=== PATIENT | male | born 1935 | race Caucasian/White ===

== ENCOUNTER → 2018-12-04 | Outpatient (CLI) | payer MEDICARE ==
--- NOTE | 2018-12-04 08:47 | US ---
EXAMINATION TYPE: US venous doppler duplex LE RT DATE OF EXAM: 12/04/2018 7:52 AM COMPARISON: US CLINICAL HISTORY: R60.9 Edema RLE. SIDE PERFORMED: Right TECHNIQUE: The lower extremity deep venous system is examined utilizing real time linear array sonog camacho with graded compression, doppler sonography and color-flow sonography. VESSELS IMAGED: External Iliac Vein (EIV) Common Femoral Vein Deep Femoral Vein Greater Saphenous Vein * Femoral Vein Popliteal Vein Proximal Calf Veins (* superficial vessels) Grayscale, color doppler, spectral doppler imaging performed of the deep veins of the right lower ext remity. There is normal flow, compressibility, vascular waveforms. Right Leg: Negative for DVT IMPRESSION: No sonographic evidence of deep venous thrombosis within the right lower extremity.
== END | disposition home or self-care (01) ==
LOC: RADUSWWP 07:27
PROVIDERS: ATTEND Internal Medicine Geriatric Medicine
DX: R60.9 Edema, unspecified (principal); I82.401 Acute embolism and thrombosis of unspecified deep veins of right lower extremity

== ENCOUNTER → 2018-12-07 | Outpatient (CLI) | payer MEDICARE ==
--- NOTE | 2018-12-07 13:46 | CT ---
EXAMINATION TYPE: CT pelvis wo con DATE OF EXAM: 12/07/2018 COMPARISON: None HISTORY: Right leg swelling CT DLP: 254.3 mGycm Automated exposure control for dose reduction was used. FINDINGS: Lack of radiographic contrast may limit sensitivity. The prostate is enlarged and shows metallic densities likely due to brachytherapy seeds. Urinary blad roland wall is thickened likely due to chronic outlet obstruction. Atheromatous changes are present with in the vasculature. Degenerative disc changes and facet arthropathy noted at the lower lumbar spine. There is a sclerotic focus present within the left L4 transverse process. Small sclerotic focus withi n the inferior aspect of the superior pubic ramus on the right. Extensive diverticular change associated with the sigmoid colon. IMPRESSION: FINDINGS COULD REPRESENT METASTATIC DISEASE TO THE SKELETON. CONSIDER BONE SCAN FOR BETTER EVALUATION . Noncontrast exam. Diverticulosis. Findings compatible with patient's history of prostate carcinoma, additional findings above.
== END | disposition home or self-care (01) ==
LOC: RADCTMAIN 13:03
PROVIDERS: ATTEND Internal Medicine Geriatric Medicine
DX: I70.90 Unspecified atherosclerosis (principal)
CPT/HCPCS: 72192